=== PATIENT | male | born 1980 | race Caucasian/White ===

== ENCOUNTER 2022-10-23 11:42 | Emergency (ER) | payer BC, SELFPAY ==
[2022-10-23 11:50] VITALS: BP 117/71; PULSE 76; RESP 20; TEMP 37.1; O2SAT 100
--- NOTE | 2022-10-23 11:50 | ED.URI ---
HPI - URI/Sore Throat General Chief Complaint: Upper Respiratory Infection Stated Complaint: SORE THROAT/FEVER Time Seen by Provider: 10/23/22 11:50 History of Present Illness HPI Narrative: 42 y/o male presented for c/o sore throat since yesterday. Endorses headache and fever up to 100.3 today. Denies sick contacts. Denies cough, sob, wheezing, n/v/d. Took Advil this morning which has helped the pain. Tested negative at home for covid today. Related Data Allergies Allergy/AdvReac Type Severity Reaction Status Date / Time No Known Allergies Allergy Unverified 10/23/22 11:59 Review of Systems Review of Systems: CONSTITUTIONAL: Reports fever; Denies body aches EYES: Denies visual changes, redness, or discharge. ENT: Denies rhinorrhea, congestion, or otalgia. CARDIOVASCULAR: Denies chest pain, palpitations, or edema. RESPIRATORY: Denies dyspnea. GASTROINTESTINAL: Denies abdominal pain, nausea, vomiting, or diarrhea. SKIN: Denies rash, itching, or wounds. MUSCULOSKELETAL: Denies back pain, joint pain, or myalgia. NEUROLOGIC: Denies headache [facility] Past Medical History Medical History (Updated 10/23/22 @ 12:07 by Laurie Esteves, MUSHROOM PRESS OPERATOR) Seasonal allergies Exam Narrative: GENERAL: mildly Ill-appearing, no acute distress. EYES: conjunctivae clear ENT: Mucous membranes moist. TMs pearly sams with normal light reflex bilaterally; no tragal tenderness. Oropharynx severely erythematous without lesions. Tonsils enlarged 2+ with mild exudate. No drooling, no hoarseness, no trismus, uvula midline. No tripod positioning, hot potato voice, or soft palate swelling. NECK: Supple. CHEST: Clear to auscultation, breath sounds equal. No respiratory distress, speaks in full sentences. HEART: Regular rate and rhythm. No murmur heard. SKIN: Warm, dry, no rash. NEURO: Alert and oriented x3. Course Course Emergency Course: Patient is aware of diagnosis, understands and agrees to treatment plan. Anticipatory guidance given. Patient agrees to follow-up as directed and is aware of reasons to seek care at the emergency department. Portions of this record may have been created with voice recognition software Level of Care: Express Care Visit Vital Signs Vital signs: Vital Signs Temperature 98.7 F 10/23/22 11:50 Pulse Rate 76 10/23/22 11:50 Respiratory Rate 20 10/23/22 11:50 Blood Pressure 117/71 10/23/22 11:50 Pulse Oximetry 100 10/23/22 11:50 Oxygen Delivery Room Air 10/23/22 11:50 Temperature 98.7 F 10/23/22 11:50 Pulse Rate 76 10/23/22 11:50 Respiratory Rate 20 10/23/22 11:50 Blood Pressure 117/71 10/23/22 11:50 Pulse Oximetry 100 10/23/22 11:50 Oxygen Delivery Room Air 10/23/22 11:50 MDM - URI/Sore Throat MDM Narrative Medical decision making narrative: POS strep result reviewed with pt. Advise supportive treatments. Patient is appropriate for outpatient treatment and follow-up. Differential Diagnosis Differential diagnosis: Likely upper respiratory infection, viral infection and pharyngitis Discharge Plan Discharge Clinical Impression: Strep pharyngitis Patient Disposition: Home, Self-Care Condition: Stable Instructions: Antibiotic Form, Strep Throat (ED) Additional Instructions: - Take the antibiotic as directed. Fever and sore throat typically resolve within one to three days. Most patients can return to work after 12 to 24 hours of antibiotic therapy, provided you are fever free and otherwise well. -Eat and drink things that are easy to swallow, like soft foods, cool liquids, tea with honey, or popsicles . -Salt water gargles and/or may use topical anesthetic ( Chloraseptic spray) or lozenges to relieve dryness or throat pain -Alternate Tylenol and ibuprofen as needed for pain and fever as directed. -Frequent hand washing or hand electric meter installer helper is one of the best ways to prevent spread of infection. Throw away the toothbrush after 24hours of a
== END 2022-10-23 12:15 | disposition home or self-care (01) ==
PROVIDERS: Emergency Provider Nurse Practitioner Family; PCP Family Medicine
DX: J02.0 Streptococcal pharyngitis (principal)
CPT/HCPCS: 87880; 99203; G0463